=== PATIENT | male | born 1965 | race Caucasian/White ===

== ENCOUNTER 2017-11-10 18:03 | Observation (INO) | payer OTHER ==
[2017-11-10] MEDS ORDERED: NS 0.9% 1000 ML* 1,000 ML IV ONE (18:41)
[2017-11-10 18:56] LABS: ABS Basophils 0.1 10^3/ul (0-0.2); ABS Eosinophils 0.2 10^3/ul (0-0.6); ABS Lymphocytes 1.7 10^3/ul (1.0-4.8); ABS Monocytes 0.4 10^3/ul (0-0.8); ABS Neutrophils 5.5 10^3/ul (1.5-7.7); ABS Nucleated RBC 0 10^3/ul; Eosinophil % 3.2 % (0-6); Hematocrit 42 % (42-52); Hemoglobin 14.2 g/dl (14.0-18.0); Lymphocyte % 21.7 % (25-47); Mean Corpuscular HGB Conc 34 g/dl (31-36); Mean Corpuscular Hemoglobin 30 pg (27-31); Mean Corpuscular Volume 90 fL (80-94); Mean Platelet Volume 8.1 um3 (7.4-10.4); Nucleated Red Blood Cells % 0.1; Platelet Count 175 10^3/ul (150-450); Red Blood Count 4.66 10^6/ul (4.00-5.40); Red Cell Distribution Width 13 % (10.5-15); White Blood Count 7.9 10^3/ul (3.5-10.8)
[2017-11-10 19:08] LABS: INR 0.95 (0.77-1.02)
[2017-11-10 19:18] LABS: EGFR Non-African American 63.1 (>60)
--- NOTE | 2017-11-10 19:35 | ED ---
Neurological HPI - HPI Summary HPI Summary: A 52 y/o male CANDICE accompanied by his daughter presents to ED s/p seizure. Additionally, his lip is numb. In the ED room, the patient has a pulse of 78 BPM , O2 saturation of 91% and blood pressure of 133/90. As per triage, "Pt arrives via EMS for possible seizure. Per female with pt, pt was sleeping and noted to be convulsing and lips turned purple, pt was assisted to floor off bed as pt was slumping in that direction. Pt now awake and alert, some memory loss during transport per EMS. Pt does not remember event. Denies hx of seziures. BG 113 per EMS". Currently, the patient feels much better and feels fine. According to the patient, he has never had a seizure before. He fell asleep in his daughters bedroom as he was helping her move into school today. He noted that sometimes he gets a migraine with his eyes getting blurry. Next thing he knows is he is in a ambulance. As per daughter, she believes it was a seizure. She noted that he has had no water and lots of coffee with no sleep last night. She stated that he was sleeping and then all of a sudden a seizure started where the patient started shaking and his face was turning purple. Additionally , he was breathing heavily/wheezing and foaming at the mouth. There was no urination. After approximately a 5-8 minute episode, he started responding slowly. She noted that he was unconscious but his eyes were open and he was breathing, just heavily. SHx of 1-2 glasses of wine everyday (last night too). No other issues. 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 Onset/Duration: Sudden Onset, Started hours ago Timing: Sudden Onset Current Severity: None Number of Seizures: 1 Pain Intensity: 0 Pain Scale Used: 0-10 Numeric Character: Numbness/Tingling - Lip Syncope Timin-8 Number of Episodes: 1 Syncope Context: Witnessed Aggravating: Nothing Alleviating: Nothing Associated Signs and Symptoms: Positive: Negative - Allergy/Home Medications Allergies/Adverse Reactions: Allergies Allergy/AdvReac Type Severity Reaction Status Date / Time No Known Allergies Allergy Verified 11/10/17 18:14 Home Medications: Home Medications NK [No Home Medications Reported] 11/10/17 [History Confirmed 11/10/17] PMH/Surg Hx/FS Hx/Imm Hx Endocrine/Hematology History: Denies: Hx Diabetes Cardiovascular History: Denies: Hx Hypertension - Surgical History Surgery Procedure, Year, and Place: No prior surgeries. Infectious Disease History: No Infectious Disease History: Denies: Traveled Outside the [place] in Last 30 Days - Family History Known Family History: Positive: Hypertension, Other - Breast and esophageal cancer Negative: Diabetes - Social History Alcohol Use: Daily Alcohol Amount: 2 glasses wine per day Substance Use Type: Reports: None Smoking Status (MU): Never Smoked Tobacco Review of Systems Negative: Fever Neurological: Other - POSITIVE: Seizure Positive: Numbness - Lip All Other Systems Reviewed And Are Negative: Yes Physical Exam - Summary Physical Exam Summary: Appearance: Well appearing, no pain distress Skin: warm, dry, reflects adequate perfusion Head/face: normal Eyes: EOMI, AIDAN ENT: normal Neck: supple, non-tender Respiratory: CTA, breath sounds present Cardiovascular: RRR, pulses symmetrical Abdomen: non-tender, soft Bowel: present Musculoskeletal: normal, strength/ROM intact Neuro: normal, sensory motor intact, A&Ox3 GCS: 15 Triage Information Reviewed: Yes Vital Signs On Initial Exam: Initial Vitals Temp Pulse Resp BP Pulse Ox 98.2 F 91 16 125/81 96 11/10/17 18:12 11/10/17 18:12 11/10/17 18:12 11/10/17 18:12 11/10/17 18:12 Vital Signs Reviewed: Yes Diagnostics - Vital Signs Vital Signs Temp Pulse Resp BP Pulse Ox 11/10/17 19:00 68 15 93 11/10/17 18:37 74 18 133/90 95 11/10/17 18:12 98.2 F 91 16 125/81 96 - Laboratory Lab Results: Lab Results 11/10/17 11/10/17 11/10/17 Range/Units 18:47 18:47 18:47 WBC 7.9 (3.5-10.8) 10^3/ul RBC 4.66 (4.00-5.40) 10^6/ul Hgb 14.2 (14.0-18.0) g/dl Hct 42 (42-52) % MCV 90 (80-94) fL MCH 30 (27-31) pg MCHC 34 (31-36) g/dl RDW 13 (10.5-15) % Plt Count 175 (150-450) 10^3/ul MPV 8.1 (7.4-10.4) um3 Neut % (Auto) 68.9 (38-83) % Lymph % (Auto) 21.7 L (25-47) % Harris % (Auto) 5.2 (0-7) % Eos % (Auto) 3.2 (0-6) % Baso % (Auto) 1.0 (0-2) % Absolute Neuts (auto) 5.5 (1.5-7.7) 10^3/ul Absolute Lymphs (auto) 1.7 (1.0-4.8) 10^3/ul Absolute Monos (auto) 0.4 (0-0.8) 10^3/ul Absolute Eos (auto) 0.2 (0-0.6) 10^3/ul Absolute Basos (auto) 0.1 (0-0.2) 10^3/ul Absolute Nucleated RBC 0 10^3/ul Nucleated RBC % 0.1 INR (Anticoag Therapy) 0.95 (0.77-1.02) APTT 25.0 L (26.0-36.3) seconds Sodium 140 (135-145) mmol/L Potassium 3.9 (3.5-5.0) mmol/L Chloride 105 (101-111) mmol/L Carbon Dioxide 28 (22-32) mmol/L Anion Gap 7 (2-11) mmol/L BUN 21 (6-24) mg/dL Creatinine 1.20 H (0.67-1.17) mg/dL Est GFR ( Amer) 76.3 (>60) Est GFR (Non-Af Amer) 63.1 (>60) BUN/Creatinine Ratio 17.5 (8-20) Glucose 109 H (70-100) mg/dL Calcium 9.5 (8.6-10.3) mg/dL Magnesium 2.2 (1.9-2.7) mg/dL Total Bilirubin 0.60 (0.2-1.0) mg/dL AST 21 (13-39) U/L ALT 17 (7-52) U/L Alkaline Phosphatase 58 (34-104) U/L Troponin I 0.00 (<0.04) ng/mL Total Protein 7.2 (6.4-8.9) g/dL Albumin 4.3 (3.2-5.2) g/dL Globulin 2.9 (2-4) g/dL Albumin/Globulin Ratio 1.5 (1-3) Serum Alcohol < 10 (<10) mg/dL Result Diagrams: 11/10/17 18:47 11/10/17 18:47 Lab Statement: Any lab studies that have been ordered have been reviewed, and results considered in the medical decision making process. - Radiology CXR Radiology Interpretation Completed By: Radiologist - Negative. Pending official report. - CT BRAIN CT CT Interpretation Completed By: Radiologist - Normal noncontrast head CT. ED PHYSICIAN REVIEWED THIS RADIOLOGY REPORT. - EKG 1843 Cardiac Rate: NL - 71 BPM EKG Rhythm: Sinus Rhythm EKG Interpretation: No acute changes Course/Dx - Course Course Of Treatment: A 52 y/o male BIBA accompanied by his daughter presents to ED s/p seizure. Additionally, his lip is numb. He was sleeping and then all of a sudden a seizure started where the patient started shaking and his face was turning purple. Additionally, he was breathing heavily/wheezing and foaming at the mouth. There was no urination. After approximately a 5-8 minute episode, he started responding slowly. She noted that he was unconscious but his eyes were open and he was breathing, just heavily. A Brain CT, CXR and EKG revealed to be within normal limits. In the ED course, the patient recieved IV fluids. Patient care was discussed with neurologist, Dr. Franklin, who recommends admission. Additionally, patient care was discussed with hospitalist, Dr. Moreno, who accepts patient for admission. Patient will be admitted with a diagnosis of new- onset seizure. Patient is agreeble with this plan. - Differential Dx Differential Diagnoses Neuro: Positive: Cerebrovascular Accident, Intracranial Bleed, Postical, Seizure Disorder - Diagnoses Provider Diagnoses: New onset seizure - Physician Notifications Discussed Care Of Patient With: Debbie Franklin Time Discussed With Above Provider: 20:38 Instructed by Provider To: Other - Recommends admission. Dr. Moreno accepts patient for admission. - Critical Care Time Critical Care Time: 30-74 min Discharge - Sign-Out/Discharge Documenting (check all that apply): Patient Departure - ADMIT - Discharge Plan Condition: Stable Disposition: ADMITTED TO [facility] - Billing Disposition and Condition Condition: STABLE Disposition: Admitted to [facility] - Attestation Statements Document Initiated by Dain: Yes Documenting Scribe: Thomas Koch Provider For Whom Dain is Documenting (Include Credential): Deon Ron MD Scribe Attestation: Thomas Andre, scribed for Deon Ron MD on 11/10/17 at 2154. Scribe Documentation Reviewed: Yes Provider Attestation: The documentation as recorded by the Thomas haji accurately reflects the service I personally performed and the decisions made by , Deon Ron MD
--- NOTE | 2017-11-10 20:05 | RAD ---
EXAM: CT Head Without Intravenous Contrast CLINICAL HISTORY: 52 years old, male; Signs and symptoms; Other: Seizure; Additional info: Sz TECHNIQUE: Axial computed tomography images of the head/brain without intravenous contrast. All CT scans at this facility use at least one of these dose optimization techniques: automated exposure control; mA and/or kV adjustment per patient size (includes targeted exams where dose is matched to clinical indication); or iterative reconstruction. COMPARISON: No relevant prior studies available. FINDINGS: Brain: No acute ischemic changes, extra axial fluid collections, intraparenchymal hemorrhage, or midline shift. Ventricles: Normal. No ventriculomegaly. Symmetrical in position. Bones/joints: No acute fracture. No suspicious osseous lesions. Soft tissues: Normal. Sinuses: Normal as visualized. Mastoid air cells: Normal as visualized. No mastoid effusion. IMPRESSION: Normal noncontrast head CT.
[2017-11-10] MEDS ORDERED: Acetaminophen TAB* 325 MG PO ONE (20:58)
[2017-11-10] MEDS ORDERED: Ibuprofen TAB* 600 MG PO ONE (21:13)
[2017-11-10] MEDS ORDERED: Al Hydrox/Mg Hydrox/Simet LIQ* 30 ML UDC PO PRN (21:19)
[2017-11-10] MEDS ORDERED: Acetaminophen TAB* 325 MG PO PRN (21:19)
[2017-11-10] MEDS ORDERED: Ondansetron INJ* 2 MG/ML VIAL IV PRN (21:19)
[2017-11-10] MEDS ORDERED: Ibuprofen TAB* 600 MG PO PRN (21:21)
[2017-11-10] MEDS ORDERED: Enoxaparin(*) 40 MG/0.4 ML SYR SUBCUT SCH (22:00)
--- NOTE | 2017-11-10 22:32 | HP ---
CC: Dr. Jeanie Salmeron, [place], [place] * HISTORY AND PHYSICAL: DATE OF ADMISSION: 11/10/17 TIME OF EVALUATION: 2100. PRIMARY CARE PHYSICIAN: Dr. Jeanie Salmeron. CHIEF COMPLAINT: Seizure disorder. HISTORY OF PRESENT ILLNESS: This is a 52-year-old male with an unremarkable past medical history, who presented to the emergency room via EMS after having a seizure- like activity. The patient states he was moving his daughter into [place], driving here from [place], [place], which is about a 5-1/2-hour drive. He states he woke up early around 4 a.m., went to bed around 10 p.m. He was unable to sleep, drove her here, did not eat or drink much. When he got to the town, they walked around. He moved her in and he states rarely he will start the beginning of a migraine where he starts to see spots and this afternoon, he started seeing spots. He states usually when he takes a nap, the symptoms resolve, so he went to lie down. Per his daughter, about half an hour into sleep, he started developing seizure-like appearance, would not wake up. She called EMS. By the time they arrived, his seizure had resolved but he was still quite out of it. His last recollection is being in the ambulance. From the time the daughter called to the time EMS arrived was about 15-minute duration, so it is possible that he has seized for 15 minutes. He has a mild headache. His bottom lip still feels tingling. No vision changes. He did not have any loss of bowel or bladder during his seizure activity. No history of seizure in the past. He states he drinks about 1 to 2 glasses of wine per night , but he does go nights without it. He did not drink at all this evening. He denies any nausea, vomiting, or diarrhea. No abdominal pain. No urinary symptoms. No fever, no vision changes. Otherwise remaining review of systems is negative. In the emergency room, the patient had labs and imaging. Neurology was contacted and they recommended admission for observation with workup in the morning. Otherwise review of systems was negative. In the emergency room, the patient was given 1 L of normal saline and referred to the hospitalist service for further evaluation. PAST MEDICAL HISTORY: Unremarkable. PAST SURGICAL HISTORY: Right wrist repair. MEDICATIONS: None. ALLERGIES: No known drug allergies. FAMILY HISTORY: No history of seizure disorder. SOCIAL HISTORY: The patient is from [place], [place]. He lives at home with his . He is just moving his daughter into [place]. She is a senior this year. As mentioned, he drinks 1 to 2 glasses of wine, not every night but several times a week. No smoking or illicit drugs. He works as a real estate professional. His healthcare proxy is his . His code status is full code. REVIEW OF SYSTEMS: A 14-point review of systems as mentioned in the HPI, otherwise negative. PHYSICAL EXAMINATION GENERAL: No acute distress, resting comfortably. VITAL SIGNS: Temp 98.2, pulse rate 67, respiratory rate 22, oxygen saturation 97 % on room air, blood pressure 137/85. HEENT: Head: Normocephalic. Pupils are equal and reactive, anicteric. Oropharynx: Mucous membranes are moist. NECK: Supple. No lymphadenopathy. RESPIRATORY: Clear to auscultation. No wheezes, rhonchi, or rales. CARDIAC: Regular rate and rhythm. No murmurs, rubs, or gallops. ABDOMEN: Positive bowel sounds, soft, nontender, nondistended. EXTREMITIES: No clubbing, cyanosis, or edema. +2 DPs. NEUROLOGIC: Alert and oriented x3. No gross focal neurologic deficits. Cranial nerves II through XII intact. Negative pronator drift. Upper and lower muscle strength equal and symmetric. DIAGNOSTIC STUDIES/LAB DATA: White count 7.9, hemoglobin 14.2, hematocrit 42, platelets 175. INR is 0.95. Sodium 140, potassium 3.9, chloride 105, bicarb 28 , BUN 21, creatinine 1.21, glucose 109. Troponin is 0. Toxicology: Alcohol is negative. Radiographic data: Head CT shows normal noncontrast head CT. EKG shows normal sinus rhythm. ASSESSMENT AND PLAN: This is a 52-year-old male with unremarkable past medical history, who presents to the emergency room with a seizure. 1. Seizure: Assessment: Exam and workup is unremarkable. I spoke with Dr. Franklin, who recommended admission for observation with MRI and EEG. It could be that his seizure was related to sleep deprivation; however, he should have a further workup. Plan: We will admit to [address] [place] [address] with telemetry. Order MRI with and without contrast in the morning as well as an EEG. Continue Tylenol and ibuprofen as needed. 2. FEN. Regular diet. 3. DVT prophylaxis. The patient scores moderate risk. Place him on Lovenox subcu daily. 4. Code status. Full code. PATIENT TIME: Greater than 50 minutes was spent doing the history and physical , more than half the time was spent in direct patient contact. [id number]/[facility] #: [id number] MELANIA
--- NOTE | 2017-11-11 07:48 | RAD ---
INDICATION: Seizure COMPARISON: None TECHNIQUE: An AP portable view obtained at 1856 hours is submitted. FINDINGS: Bones/Soft Tissues: There are no acute bony findings. There is a scoliotic deformity. Cardiomediastinal: The cardiomediastinal silhouette is normal. Lungs: There are no infiltrates. Pleura: There are no pleural effusions. Other: None IMPRESSION: NO ACTIVE DISEASE.. R0
[2017-11-11 08:35] LABS: Urine Appearance Clear; Urine Blood 2+ (Negative); Urine Color Yellow; Urine Ketones Negative (Negative); Urine Protein Negative (Negative); Urine Red Blood Cell Trace(0-2/hpf) (Absent); Urine Specific Gravity 1.014 (1.010-1.030); Urine Urobilinogen Negative (Negative)
[2017-11-11] MEDS ORDERED: Gadoteridol* (CONTRAST) 279.3 MG/ML 10 ML IV ONE (15:57)
--- NOTE | 2017-11-11 17:13 | RAD ---
INDICATION: Seizure. COMPARISON: There are no relevant prior studies available for comparison. TECHNIQUE: Sagittal T1, coronal T1 and T2, axial T1, T2, susceptibility, FLAIR and diffusion-weighted images were obtained. In addition, axial, sagittal and coronal T1-weighted images were obtained following intravenous injection of 15 ml of ProHance contrast. FINDINGS: The ventricles, cisterns and sulci appear to be within normal limits. No significant focal abnormality or mass effect is seen. No abnormal area of enhancement is seen. There is no evidence for mesial temporal sclerosis. No areas of restricted diffusion are present. There is no evidence for infarct or hemorrhage. The visualized portion of the paranasal sinuses and mastoid air cells appear clear. IMPRESSION: NEGATIVE EXAM.
[2017-11-11 17:36] VITALS: BP 123/81
--- NOTE | 2017-11-11 21:29 | CONS ---
NEUROLOGY CONSULTATION: DATE OF CONSULT: 11/11/17 LOCATION: He is an inpatient in room 418. HOSPITALIST: Dr. Bills. PRIMARY CARE PHYSICIAN: Dr. Jeanie Salmeron. CHIEF COMPLAINT: Possible seizure. HISTORY OF PRESENT ILLNESS: Norman Rogers is a 52-year-old man who drove up from [place] to bring his daughter to [place] yesterday. He got up very early and it was a long drive. Around 4 p.m., he started to feel that his vision was off such that he has experienced previously prior to a migraine headache. He was very tired and went to lie down in his daughter's bed while she was unpacking. He was sleeping soundly as documented by a video she took on her phone and which she showed me at his phone. Subsequently, he had generalized jerking movements, gasping breaths, and a purplish red discoloration of his face. This went on apparently for a couple of minutes, but I do not have a first hand description currently. She called an ambulance and the ambulance attendants arrived to find him confused. He apparently was able to answer some questions, but was very disoriented. He recalls going to take the nap and the visual symptoms in the next thing he recalls is being in the ambulance and being very confused. He subsequently mentally cleared and by the time he was in the emergency room he feels that he recalls everything. He noted some numbness of his lower lip, but other than that felt reasonably well. There is no muscular pain, neck pain, or headaches. He was admitted to the hospital and he has not had any further episodes since last afternoon when it had occurred. He had a number of laboratory studies at presentation notable for unremarkable chemistry profile other than a mildly elevated creatinine at 1.2. BUN was normal at 21 and glucose is 109. He had a normal CBC, INR and PTT , and serum alcohol undetectable. Urinalysis revealed 2+ blood and was otherwise unremarkable. Currently, he feels well other than the numbness of his lower lip. There is no prior history of seizures, head injury, developmental delay, prematurity, or strokes. There is no family history of epilepsy. He does not abuse any drugs. He has 1 to 2 glasses of wine most evenings. He did not have any wine yesterday. He drinks "a lot" of coffee according to his . PAST MEDICAL HISTORY: Notable for good health. He exercises regularly. MEDICATIONS: He does not take any medications on a regular basis. FAMILY HISTORY: Negative for seizure disorders. SOCIAL HISTORY: He works from home. He does not smoke. He exercises regularly. He lives with his and son and daughter who is currently in [place]. REVIEW OF SYSTEMS: Negative for faints, head trauma, low blood pressure, or heart disease. There is no history of diabetes. No recent febrile illnesses. PHYSICAL EXAM: He is well nourished and well hydrated. Temperature 98.2 temporally, blood pressure is 128/77 most recently, heart rates in the 60s and regular. Respiratory rate is 12, oxygen saturation is 98% on room air. Lungs are clear bilaterally. Heart is in a regular rate and rhythm without murmurs. There are no cervical bruits. There is a small amount of erythema and excoriation in the inner lower lip consistent without recent bite melquiades. The lip is a little bit swollen too. The rest of the oropharynx is atraumatic. Neurologically, pupils react equally from 3.5 to 2.5 mm. Eye movements are normal. Funduscopic exam is normal as well. Visual song are full to confrontation. Facial musculature and sensation are intact and symmetric. Palate and tongue are otherwise normal and speech is clear. Motor exam reveals normal muscle tone and strength proximally and distally in upper and lower extremities. There is no pronator drift. Finger taps are normal in the hands. There is no rest or postural tremor. Sensory exam to vibration and light touch is normal and symmetrical in the limbs. Romberg sign is slightly present. Reflexes are intact and symmetric in the upper extremities and lower extremities. Plantar responses are flexor bilaterally. Gait is stable and independent. He has a hard time with tandem gait, states his balance is always been poor. He is alert and oriented, and an excellent detailed historian. Memory is intact and language is fluent. He has good attention, concentration, and fund of knowledge. DIAGNOSTIC STUDIES: Additional laboratory data includes an EEG which I reviewed earlier today and which looks to be a normal EEG. Brain CT was interpreted as normal last night. MRI of the brain interpretation is pending. I reviewed it and it looks normal to my review. Chest x-ray from yesterday evening is interpreted as showing no active disease. IMPRESSION AND PLAN: Single convulsion in his sleep. He was sleep deprived, but that is typically not an adequate explanation to explain a seizure alone. I cannot elicit any other risk factors of seizures other than possible untreated sleep apnea. His says he snores very loudly and possibly he may stop breathing in his sleep. He uses nasal tapes to help him breathe at night and to reduce snoring, but he has never had a sleep study. I do not think there is enough evidence to support adding anticonvulsants at this point in time. I told him that it is not typical for a 52-year-old man to have a new onset seizure just from sleep deprivation and I recommend further evaluation back at his home and that he gets another neurological opinion and probably at least a repeat EEG. I explained in [facility] he is not allowed to drive for a minimum of 6 months from his last seizure and he must notify the Department of Motor Vehicles of his diagnosis. He cannot drive until he is cleared by the DMV. His is going to do driving to get him back home. If the radiologists see something that I have missed, then we will need to address that, but at this point the MRI looks clear enough where I think he could be discharged home pending final interpretation. I have explained my opinion to Norman and his , and answered questions. [id number]/[facility] #: [id number] MELANIA
--- NOTE | 2017-11-11 22:53 | EEG ---
ELECTROENCEPHALOGRAM REPORT: DATE OF STUDY: 11/10/17 REFERRING PROVIDER: Dr. Moreno. LOCATION: He is in room 418. CLINICAL HISTORY: Possible seizure in a patient visiting from [place] brining his [id number] to [facility]. He apparently was sleep deprived and had an episode, which appeared to be convulsive. He has poor recollection of the events in the emergency room. There is no prior history of seizures. MEDICATIONS: He is not on any medications routinely. REPORT: This 16-channel EEG is remarkable for background rhythms consisting of a well formed alpha rhythm in the posterior derivations at 10 cycles per second , which is symmetric and suppressed by eye opening. Lower voltage bifrontal beta rhythms are noted and are symmetric. Hyperventilation is carried out without appreciable change in background waking rhythms. The patient subsequently drowses and intermittently falls asleep with vertex slowing and some sleep spindles noted. The patient intermittently drowses and wakes through the later portions of the tracing. There are no focal, lateralized, or epileptiform abnormalities. INTERPRETATION: Normal awake and asleep EEG. [id number]/[facility] #: [id number] [facility]ENTER[facility]
--- NOTE | 2017-11-12 02:52 | DS ---
CC: Dr. Jeanie aSlmeron in [place], [place] * DISCHARGE SUMMARY: DATE OF ADMISSION: 11/10/17 DATE OF DISCHARGE: 11/11/17 PRINCIPAL DISCHARGE DIAGNOSIS: Seizure. HOSPITAL COURSE BY PROBLEMS: Seizure. Mr. Rogers was admitted to the hospital after having a witnessed seizure on the day of admission, it was witnessed by his daughter after he moved her into her apartment at [place]. Please see the H and P for a complete description of the history of present illness. In the emergency department, he was noted to be postictal. A CT head was unremarkable and Neurology was consulted. An EEG was unremarkable and he returned to baseline 15 minutes after the seizure activity was witnessed. No metabolic derangement was found. No infectious etiology was found and he has no predisposing risk factors to his seizure disorder. He was evaluated by Dr. Mansfield on 11/11/17, who recommended no anticonvulsant therapy at this time and follow up with a neurologist in [place] where he lives. At the time of discharge, his official MRI report is pending, but per Dr. Mansfield's review, it is unremarkable. Mr. Rogers is instructed not to drive and to report the seizure to the [employer] and he expresses understanding of this restriction. PHYSICAL EXAM AT THE TIME OF DISCHARGE: Temperature 97.9, heart rate 51, respiratory rate 16, pulse ox 98% on room air, blood pressure 144/85. General: Alert, well-appearing man, in no distress. HEENT: Pupils are equal, round, and reactive to light and 4 mm bilaterally. No nystagmus was noted. Tongue is midline and face is symmetric. Oral mucosa is moist. No pharyngeal exudates or erythema. Neck: No JVP. No cervical adenopathy. Neurologic: Gait is normal. Strength is 5/5 in all extremities. Cognition is intact. Recall is intact. He follows simple and complex commands and his affect is normal. TIME SPENT: Thirty minutes was sent on this discharge. [id number]/[facility] #: [id number] MTDD
== END 2017-11-11 17:41 | disposition home or self-care (01) ==
LOC: ED 18:03 → MED 21:31
PROVIDERS: ADMIT Pediatrics; ATTEND Internal Medicine
DX: G40.909 Epilepsy, unspecified, not intractable, without status epilepticus (principal); R51 Headache
CPT/HCPCS: 36415; 70450; 70553; 71045; 80053; 80320; 81003; 81015; 83735; 84484; 85025; 85610; 85730; 93005; 95819; 96360; 96372; 99283; A9270-GY; A9579; G0378; G0480; J1650